=== PATIENT | female | born 1995 | race Caucasian/White ===

== ENCOUNTER 2025-01-26 14:30 | Outpatient (CLI) | payer BC, SELFPAY | END 2025-01-26 14:31 | disposition home or self-care (01) | LOC: NFLDREF 01-31 14:07 | PROVIDERS: Visit Provider Advanced Practice Midwife | DX: Z34.02 Encounter for supervision of normal first pregnancy, second trimester (principal) | CPT/HCPCS: 86787 ==

== ENCOUNTER 2025-04-07 11:35 | Outpatient (CLI) | payer BC, SELFPAY ==
[2025-04-07] VITALS (43 sets, daily range): BP systolic 117–127; BP diastolic 76–78; PULSE 69–126; RESP 16–20; TEMP 36.8; O2SAT 90–100
--- NOTE | 2025-04-07 13:51 | CRLHL7_ITS ---
For Patients: As a result of the Century Cures Act, medical imaging exams and procedure reports are released immediately into your electronic medical record. You may view this report before your referring provider. If you have questions, please contact your health care provider. Indication: cervical length, per provider LMP: 06/29/2025. Technique: Real-time sonographic images of the pelvis were obtained transabdominal and transvaginally using grayscale, color, and Doppler imaging. Comparison: None. Findings: Placenta: Posterior. No previa. : Number: Single. Position: Breech. Cardiac activity: 165 BPM. Amniotic fluid: Single deepest pocket measures 6.4 cm. Cervix is closed, measuring 3.0 centimeter in length. Impression: 1. Single live intrauterine in breech position. 2. Amniotic fluid single deepest pocket measuring 6.4 centimeter. 3. Cervix is closed, measuring 3.0 centimeter in length. Dictated by Raul Flores MD @ 04/07/2025 3:15:45 PM (Electronically Signed)
[2025-04-07 13:52] LABS: Appearance Urine Clear (Clear)
[2025-04-07 14:23] LABS: Fetal Fibronectin* Negative (Negative)
--- NOTE | 2025-04-07 14:59 | PM.OBLDTN ---
OB - Triage/Final Diagnosis Visit Information Narrative: The patient is a 30 year old 1 para 0 at 28 1/7 weeks gestation by LMP, who presents with WICK and heart racing for 2 weeks. She currently has the WICK, but the heart racing is not happening now. She wears a heart monitor due to her pots and the racing heart symptoms do correlate to heart rates tracking at 150 bpm. She has not checked her BP when she has the symptom. She also reports some chest pain this morning with the WICK, but that has resolved since resting in the bed here. She reports good movement. No LOF or vaginal bleeding. No vaginitis symptoms. No dysuria. No fever or cough. She first reported no contractions, but a couple hours after admission that she does feel lots of uterine tightening that seems to be increasing. Nikki Wilkerson CNM will be taking over for the exam and plan development Assessment: Heart racing WICK Threatened labor P: FFN:neg CBC: normal, CMP: normal UA: normal as far as no UTI, TVUS for cervical length 2.5-3 cervical exam: 1 external os, closed inner os. To follow up in outpatient this week as scheduled To consider cardiac referral for work up outpatient To report to ER with chest pain, SOB or other worsening cardiac symptoms until then To report any increased symptoms of labor Drink plent of water to stay hydrated. d/c to home. Reviewed s/sx of PTL and knows when to come back to hospital for eval. Evaluation Laboratory results: Laboratory Tests 04/07/25 04/07/25 04/07/25 Range/Units 14:55 13:18 13:15 WBC Pending RBC Pending Hgb Pending Hct Pending MCV Pending MCH Pending MCHC Pending Plt Count Pending Neut % (Auto) Pending Lymph % (Auto) Pending [place]ham % (Auto) Pending Eos % (Auto) Pending Baso % (Auto) Pending Neut # (Auto) Pending Lymph # (Auto) Pending [place]ham # (Auto) Pending Eos # (Auto) Pending Baso # (Auto) Pending Sodium Pending Potassium Pending Chloride Pending Carbon Dioxide Pending Anion Gap Pending BUN Pending Creatinine Pending Estimated GFR Pending Glucose Pending Calcium Pending Total Bilirubin Pending AST Pending ALT Pending Alkaline Phosphatase Pending Total Protein Pending Albumin Pending Urine Color Yellow (Yellow) Urine Appearance Clear (Clear) Urine pH 7.0 (5.0-8.5) Ur Specific Granger 1.020 (1.000-1.030) Urine Protein Negative (Negative) Urine Glucose (UA) Negative (Negative) Urine Ketones 1+ A (Negative) Urine Blood Trace-intact A (Negative) Urine Nitrite Negative (Negative) Urine Bilirubin Negative (Negative) Urine Urobilinogen 0.2 (0.2-1.0) Ur Leukocyte Esterase Negative (Negative) Urine RBC 0-2 (0-2) Urine WBC 0-2 (0-5) Ur Squamous Epith Cells Few (None-Few) Urine Bacteria Few A (None) Fibronectin Negative (Negative) Vital signs: Vital Signs - 24 hr 04/07/25 11:44 04/07/25 11:47 04/07/25 11:49 Pulse Rate Blood Pressure Pulse Oximetry 100 90 100 04/07/25 11:54 04/07/25 11:58 04/07/25 11:59 Pulse Rate 74 Blood Pressure 121/76 Pulse Oximetry 100 100 04/07/25 12:04 04/07/25 12:09 04/07/25 12:14 Pulse Rate Blood Pressure Pulse Oximetry 98 99 98 04/07/25 12:19 04/07/25 12:27 04/07/25 12:28 Pulse Rate Blood Pressure Pulse Oximetry 99 90 99 04/07/25 12:33 04/07/25 12:38 04/07/25 12:43 Pulse Rate Blood Pressure Pulse Oximetry 99 99 99 04/07/25 12:48 04/07/25 12:53 04/07/25 12:58 Pulse Rate Blood Pressure Pulse Oximetry 98 99 100 04/07/25 13:03 04/07/25 13:07 04/07/25 13:07 Pulse Rate 80 Blood Pressure 117/76 Pulse Oximetry 99 04/07/25 13:08 04/07/25 13:13 04/07/25 13:18 Pulse Rate Blood Pressure Pulse Oximetry 100 100 99 04/07/25 13:23 04/07/25 13:38 04/07/25 13:39 Pulse Rate Blood Pressure Pulse Oximetry 100 91 99 04/07/25 13:44 04/07/25 13:49 04/07/25 13:54 Pulse Rate Blood Pressure Pulse Oximetry 98 98 99 04/07/25 14:00 04/07/25 14:05 04/07/25 14:08 Pulse Rate Blood Pressure 127/78 Pulse Oximetry 99 99 04/07/25 14:08 04/07/25 14:10 04/07/25 14:15 Pulse Rate 83 Blood Pressure Pulse Oximetry 98 99 04/07/25 14:20 Pulse Rate Blood Pressure Pulse Oximetry 99 Comments: Objective: Constitutional: Alert and oriented x3, no distress, coping well Vital signs stable, see nurse documentation Abdomen: gravid, contractions palpate mild with contractions and soft between Cervix: 1 cm outer os, inner os closed. NST: FHR 155, mod shirley, + 15X15 accel, one random small variable, reactive. Ctx: multiple, but they did settle down over time. Final Diagnosis (1) Supervision of other normal : Status: Acute (2) Eating disorder affecting , antepartum: Status: Acute Problem details: anorexia, in remission (3) Generalized anxiety disorder: Status: Acute (4) POTS (postural orthostatic tachycardia syndrome): Status: Acute (5) Depression: Status: Acute (6) Racing heart beat: Status: Acute (7) Headache: Status: Acute (8) Threatened labor: Status: Acute
[2025-04-07 15:06] LABS: Hematocrit* 29.7 % (33.0-51.0); Hemoglobin* 9.8 gm/dL (12.0-16.0); Immature Granulocytes Abs Auto 0.20 K/uL (0.00-0.30); Immature Granulocytes Pct Auto 1.6 %; Mean Corpuscular HGB Conc 33 gm/dL (32-36); Mean Corpuscular Hemoglobin 29 pg (26-34); Mean Corpuscular Volume 87 fL (80-100); RDW Coefficient of Variation % 11.9 % (11.5-15.5); Red Blood Count* 3.41 m/uL (4.00-5.20); White Blood Count* 12.70 K/uL (4.50-11.00)
[2025-04-07 15:09] LABS: Lymphocytes Absolute Auto 1.70 K/uL (0.90-2.90); Slide Review Reflex No
[2025-04-07 15:13] LABS: Albumin* 3.1 g/dL (3.3-5.0); Chloride* 107 mmol/L (96-114); Potassium* 3.6 mmol/L (3.6-5.1); Sodium* 133 mmol/L (135-149)
[2025-04-07 15:16] LABS: Alanine Aminotransferase* 19 U/L (4-35); Alkaline Phosphatase* 122 U/L (40-150); Anion Gap 4 mEq/L (7-15); Aspartate Amino Transferase* 23 U/L (12-35); Bilirubin Total* 0.3 mg/dL (0.1-1.5); Blood Urea Nitrogen* 5 mg/dL (5-24); Calcium* 8.9 mg/dL (8.4-10.6); Carbon Dioxide* 22 mmol/L (20-32); Creatinine* 0.4 mg/dL (0.5-1.5); Est. Creatinine Clearance* 150.40; Estimated Glomerular Filt Rate 138 ml/min; Glucose* 95 mg/dL (60-115); Total Protein* 6.1 g/dL (6.0-8.3)
--- NOTE | 2025-04-20 23:40 | PC.OBNST ---
NST Note NST Note Start: 04/07/25 12:23 Freq: ONCE Status: Discharge Protocol: Document 04/07/25 15:52 RRP (Rec: 04/20/25 23:40 RRP No Response) NST Note 1 Para (# of births) 0 EDC 06/29/25 Gestational Age In 30 Weeks & 0 Days Weeks & Days Patient Presented Other with Complaint(s) of Reactive Yes Appropriate for Yes Gestational Age SPIKE Byrnes Date 04/07/25 Reactive Yes Appropriate for Yes Gestational Age SPIKE Anne Date 04/07/25 OB NST charge Yes Complete NST Note Yes via Write Note The provider's electronic signature indicates the NST is reactive/appropriate for gestational age. *Note to provider: If an addendum is required, open the patient's chart and click on the note under the Nurse/Allied Health tab.
== END 2025-04-07 16:10 | disposition home or self-care (01) ==
LOC: OB OUT 11:35 → OB 11:36
PROVIDERS: Visit Provider Midwife
DX: O47.03 False labor before 37 completed weeks of gestation, third trimester (principal); O26.893 Other specified pregnancy related conditions, third trimester; R00.0 Tachycardia, unspecified; R51.9 Headache, unspecified; O23.43 Unspecified infection of urinary tract in pregnancy, third trimester; N39.0 Urinary tract infection, site not specified; Z3A.28 28 weeks gestation of pregnancy
CPT/HCPCS: 36415; 59025; 76815; 76817; 80053; 81001; 81003; 84112; 85025; 87086; 87186; G0463

== ENCOUNTER 2025-04-11 15:17 | Outpatient (CLI) | payer BC, SELFPAY | END 2025-04-11 15:18 | disposition home or self-care (01) | LOC: NFLDREF 15:18 | PROVIDERS: Visit Provider Advanced Practice Midwife | DX: O26.893 Other specified pregnancy related conditions, third trimester (principal); Z67.91 Unspecified blood type, Rh negative | CPT/HCPCS: 86592; 86850; J2791 ==

== ENCOUNTER 2025-04-19 08:15 | Outpatient (CLI) | payer BC, SELFPAY | END 2025-04-19 08:16 | disposition home or self-care (01) | LOC: NFLDREF 04-25 15:01 | PROVIDERS: Visit Provider Advanced Practice Midwife | DX: Z34.93 Encounter for supervision of normal pregnancy, unspecified, third trimester (principal) | CPT/HCPCS: 82951; 82952 ==

== ENCOUNTER 2025-05-12 13:18 | Outpatient (CLI) | payer BC, SELFPAY ==
--- NOTE | 2025-05-12 13:45 | CRLHL7_ITS ---
For Patients: As a result of the Century Cures Act, medical imaging exams and procedure reports are released immediately into your electronic medical record. You may view this report before your referring provider. If you have questions, please contact your health care provider. OB ULTRASOUND VI by LMP or US: 06/29/2025. GA: 33 w, 1 d. Single. Comparison: Ultrasound 03/10/2025. INDICATION: History of anorexia. TECHNIQUE: Real time grayscale imaging of the fetus was performed. Transabdominal. CERVIX: Not visualized. POSITIONING: Vertex. AMNIOTIC FLUID: 6.8 cm. SDP (N: greater than 2 x 1 cm) PLACENTA: Technique: Transabdominal. PLACENTA POSITION: Posterior. DOPPLER: heart rate: 183 bpm. BIOMETRY: BPD: 8.7 cm. 35 w, 1 d, 91%. HC: 31.6 cm. 35 w, 3 d, 74%. AC: 29.7 cm. 33 w, 5 d, 67%. FL: 6.3 cm. 32 w, 5 d, 29%. FL/AC ratio: 21.37%. HC/AC ratio: 1.06. EFW: 2260g. Weight: 5 lbs., 0 oz. age by this US: 34 w, 2 d. VI by this US: 06/21/2025. Percentile by VI: 60%. IMPRESSION: 1. Sonographic gestational age 34 weeks 2 days and sonographic due date 06/21/2025. Sonographic age is 8 days ahead of the clinical age. 2. Estimated weight 60th percentile. Abdominal circumference 67th percentile. Benitez Lakhani M.D. Diagnostic Radiologist [email or web address] olmos/Dictated by: Benitez Lakhani MD @ 05/12/2025 2:35:00 PM (Electronically Signed)
== END 2025-05-12 13:19 | disposition home or self-care (01) ==
LOC: US 13:18
PROVIDERS: Visit Provider Advanced Practice Midwife
DX: O99.343 Other mental disorders complicating pregnancy, third trimester (principal); F50.9 Eating disorder, unspecified; O36.63X0 Maternal care for excessive fetal growth, third trimester, not applicable or unspecified; Z3A.33 33 weeks gestation of pregnancy
CPT/HCPCS: 76815

== ENCOUNTER 2025-05-12 15:34 | Outpatient (CLI) | payer BC, SELFPAY | END 2025-05-12 15:35 | disposition home or self-care (01) | LOC: NFLDREF 05-18 15:33 | PROVIDERS: Visit Provider Advanced Practice Midwife | DX: Z34.93 Encounter for supervision of normal pregnancy, unspecified, third trimester (principal); Z3A.33 33 weeks gestation of pregnancy | CPT/HCPCS: 82728 ==

== ENCOUNTER 2025-05-24 01:00 | Outpatient (CLI) | payer BC, SELFPAY ==
[2025-05-24] VITALS (16 sets, daily range): BP systolic 111–113; BP diastolic 64–66; PULSE 83–120; TEMP 36.6–37; O2SAT 96–98
[2025-05-24 02:00] LABS: Appearance Urine Clear (Clear)
[2025-05-24 02:13] LABS: Hematocrit* 31.4 % (33.0-51.0); Hemoglobin* 10.0 gm/dL (12.0-16.0); Mean Corpuscular HGB Conc 32 gm/dL (32-36); Mean Corpuscular Hemoglobin 28 pg (26-34); Mean Corpuscular Volume 89 fL (80-100); Red Blood Count* 3.55 m/uL (4.00-5.20); White Blood Count* 12.19 K/uL (4.50-11.00)
[2025-05-24 02:19] LABS: Slide Review Reflex No
[2025-05-24] MEDS: 5 % DEXTROSE/0.45% SOD CHLOR 1,000 ML 250 ML IV (02:40)
[2025-05-24 03:10] LABS: PCR FLU A POSITIVE PCR FLU A (Negative); PCR FLU B Negative PCR FLU B (Negative); SARS PCR* Negative SARS-CoV-2 (Negative)
--- NOTE | 2025-05-24 04:51 | CRLHL7_ITS ---
For Patients: As a result of the Century Cures Act, medical imaging exams and procedure reports are released immediately into your electronic medical record. You may view this report before your referring provider. If you have questions, please contact your health care provider. INDICATION: Nonreactive NST TECHNIQUE: Ultrasound OB pelvis transabdominal. Real-time morales-scale imaging of the fetus was performed. COMPARISON: None. FINDINGS: heart rate: Regular, 159 bpm. position: Cephalic. SAMIRA: 21.8 centimeters, 2/2. motion 2/2, reported. tone 2/2 reported. breathing movements 2/2 reported. Posterior placenta. IMPRESSION: Mckeon intrauterine with a biophysical profile 01/13. Cardiac activity is present. Dictated by Alana Herrera MD @ 05/24/2025 7:47:15 AM (Electronically Signed)
[2025-05-24] MEDS: ACETAMINOPHEN 500 MG TABLET 1000 MG PO (05:23)
--- NOTE | 2025-05-24 06:57 | PC.OBNST ---
NST Note NST Note Start: 05/24/25 01:05 Freq: ONCE Status: Active Protocol: Document 05/24/25 06:52 [facility] (Rec: 05/24/25 06:54 [facility] No Response) NST Note 1 Para (# of births) 0 EDC 06/29/25 Gestational Age In 34 Weeks & 6 Days Weeks & Days Patient Presented Contractions/cramping,Pain,Headache with Complaint(s) of Other Complaints ill since Thursday with viral/respiratory symptoms Reactive No Appropriate for Yes Gestational Age SPIKE Marshall RNC Date 05/24/25 Reactive No Appropriate for Yes Gestational Age SPIKE Turner RN Date 05/24/25 OB NST charge Yes Complete NST Note Yes via Write Note The provider's electronic signature indicates the NST is reactive/appropriate for gestational age. *Note to provider: If an addendum is required, open the patient's chart and click on the note under the Nurse/Allied Health tab.
[2025-05-24 22:04] LABS: Strep B DNA Probe Negative (Negative)
[2025-05-24 22:34] LABS: Strep B Susceptibility Needed? No
== END 2025-05-24 06:20 | disposition home or self-care (01) ==
LOC: OB OUT 01:00 → OB 01:00
PROVIDERS: Visit Provider Midwife
DX: O47.03 False labor before 37 completed weeks of gestation, third trimester (principal); Z3A.34 34 weeks gestation of pregnancy
CPT/HCPCS: 36415; 59025; 76819; 81003; 85027; 87081; 87086; 87636; 87653; G0463; A9270; S5010

== ENCOUNTER 2025-05-29 17:31 | Outpatient (CLI) | payer BC, SELFPAY ==
[2025-05-30 14:23] LABS: Strep B DNA Probe Negative (Negative)
[2025-05-30 14:30] LABS: Strep B Susceptibility Needed? No
== END 2025-05-29 17:32 | disposition home or self-care (01) ==
LOC: NFLDREF 17:32
PROVIDERS: Visit Provider Physician Assistant
DX: Z34.93 Encounter for supervision of normal pregnancy, unspecified, third trimester (principal)
CPT/HCPCS: 87081; 87653

== ENCOUNTER 2025-06-03 04:03 | Outpatient (CLI) | payer BC, SELFPAY ==
[2025-06-03 04:14] VITALS: PULSE 105; O2SAT 98
[2025-06-03 04:18] VITALS: BP 119/85; PULSE 112
[2025-06-03 04:40] VITALS: BMI 25.8
[2025-06-03 04:53] LABS: Amnisure Rom* Negative
--- NOTE | 2025-06-03 05:29 | PC.OBNST ---
NST Note NST Note Start: 06/03/25 04:35 Freq: ONCE Status: Active Protocol: Document 06/03/25 05:27 SALVADOR (Rec: 06/03/25 05:29 SALVADOR Desktop) NST Note 1 Para (# of births) 0 EDC 06/29/25 Gestational Age In 36 Weeks & 2 Days Weeks & Days Patient Presented Leaking fluid with Complaint(s) of Reactive No Appropriate for Yes Gestational Age RN Odilia Patel RN Date 06/03/25 Reactive No Appropriate for Yes Gestational Age SPIKE Russo CNM Date 06/03/25 OB NST charge Yes Complete NST Note Yes via Write Note The provider's electronic signature indicates the NST is reactive/appropriate for gestational age. *Note to provider: If an addendum is required, open the patient's chart and click on the note under the Nurse/Allied Health tab.
== END 2025-06-03 05:27 | disposition home or self-care (01) ==
LOC: OB OUT 04:04 → OB 04:06
PROVIDERS: Visit Provider Advanced Practice Midwife
DX: O47.03 False labor before 37 completed weeks of gestation, third trimester (principal); Z3A.36 36 weeks gestation of pregnancy
CPT/HCPCS: 59025; 84112; G0463

== ENCOUNTER 2025-06-06 13:55 | Outpatient (CLI) | payer BC, SELFPAY | END 2025-06-06 13:56 | disposition home or self-care (01) | PROVIDERS: Visit Provider Advanced Practice Midwife | DX: O26.893 Other specified pregnancy related conditions, third trimester (principal); M79.7 Fibromyalgia; R10.11 Right upper quadrant pain; Z3A.36 36 weeks gestation of pregnancy | CPT/HCPCS: 82565; 82570; 84156; 84450; 84460; 84520; 84550 ==

== ENCOUNTER 2025-06-07 16:26 | Outpatient (CLI) | payer BC, SELFPAY ==
[2025-06-07] VITALS (10 sets, daily range): BP systolic 122–150; BP diastolic 70–92; PULSE 67–112; RESP 16; TEMP 36.8–36.9; BMI 25.3
[2025-06-07 17:58] LABS: Hematocrit* 36.7 % (33.0-51.0); Hemoglobin* 11.9 gm/dL (12.0-16.0); Mean Corpuscular HGB Conc 32 gm/dL (32-36); Mean Corpuscular Hemoglobin 28 pg (26-34); Mean Corpuscular Volume 86 fL (80-100); Red Blood Count* 4.25 m/uL (4.00-5.20); White Blood Count* 12.51 K/uL (4.50-11.00)
[2025-06-07 18:00] LABS: Slide Review Reflex No
[2025-06-07 18:15] LABS: Alanine Aminotransferase* 19 U/L (4-35); Aspartate Amino Transferase* 30 U/L (12-35); Blood Urea Nitrogen* 8 mg/dL (5-24); Creatinine* 0.6 mg/dL (0.5-1.5); Est. Creatinine Clearance* 100.27; Estimated Glomerular Filt Rate 125 ml/min
--- NOTE | 2025-06-07 22:44 | PC.OBNST ---
NST Note NST Note Start: 06/07/25 22:41 Freq: ONCE Status: Active Protocol: Document 06/07/25 22:42 AML (Rec: 06/07/25 22:44 AML Desktop) NST Note 1 Para (# of births) 0 EDC 06/29/25 Gestational Age In 36 Weeks & 6 Days Weeks & Days Patient Presented Contractions/cramping with Complaint(s) of Reactive Yes Appropriate for Yes Gestational Age SPIKE Moise, RN Date 06/07/25 Reactive Yes Appropriate for Yes Gestational Age SPIKE Marshall RNC Date 06/07/25 OB NST charge Yes Complete NST Note Yes via Write Note The provider's electronic signature indicates the NST is reactive/appropriate for gestational age. *Note to provider: If an addendum is required, open the patient's chart and click on the note under the Nurse/Allied Health tab.
== END 2025-06-07 21:55 | disposition home or self-care (01) ==
LOC: OB OUT 16:26 → OB 16:27
PROVIDERS: Visit Provider Advanced Practice Midwife
DX: O47.03 False labor before 37 completed weeks of gestation, third trimester (principal); Z3A.36 36 weeks gestation of pregnancy
CPT/HCPCS: 36415; 59025; 82565; 82570; 84156; 84450; 84460; 84520; 85027; G0463; A9270